=== PATIENT | male | born 1975 | race African-American/Black ===

== ENCOUNTER 2022-07-13 11:03 | Emergency (ER) | payer MEDICARE, MEDICAID | END 2022-07-13 11:35 | disposition left against medical advice (07) | LOC: CSHERS 11:03 | DX: Z53.21 Procedure and treatment not carried out due to patient leaving prior to being seen by health care provider (principal) ==

== ENCOUNTER 2022-07-16 10:21 | Emergency (ER) | payer MEDICARE, MEDICAID ==
[2022-07-16] MEDS ORDERED: Ketorolac Tromethamine 30 MG/ML VIAL ONE (12:43)
== END 2022-07-16 12:59 | disposition home or self-care (01) ==
LOC: CSHERS 10:21
DX: M25.512 Pain in left shoulder (principal); F17.210 Nicotine dependence, cigarettes, uncomplicated; W19.XXXA Unspecified fall, initial encounter
CPT/HCPCS: 96372; J1885

== ENCOUNTER 2024-07-02 13:38 | Emergency (ER) | payer MEDICARE, MEDICAID ==
[2024-07-02] MEDS ORDERED: Ketorolac Tromethamine 30 MG (1 mL) VIAL ONE (14:48)
== END 2024-07-02 17:35 | disposition home or self-care (01) ==
LOC: CSHERS 13:38
DX: M25.561 Pain in right knee (principal); W21.02XA Struck by soccer ball, initial encounter
CPT/HCPCS: 70450; 72125; 73552; 73564; J1885; 96372